=== PATIENT | male | born 1985 | race Caucasian/White ===

== ENCOUNTER 2020-08-21 10:35 | Emergency (ER) | payer MEDICAID ==
[~2020-08-21] VITALS: Ht 177.8 cm; Wt 100.0 kg
[2020-08-21] MEDS ORDERED: SODIUM CHLORIDE 0.9% 1,000 ML IV ONE (10:45)
[2020-08-21] MEDS ORDERED: LORAZEPAM 2MG/ML CPJ IV ONE ×2 (10:45→12:15)
[2020-08-21 11:00] LABS: BASOPHILS % 0.5 % (0.0-2.0); EOSINOPHILS % 0.1 % (0.0-5.0); HEMATOCRIT. 46.3 % (42.0-52.0); HEMOGLOBIN. 15.7 g/dL (14.0-18.0); LYMPHOCYTES % 18.4 % (20.0-50.0); MEAN CORPUSCULAR HEMOGLOBIN 28.3 pg (28.0-32.0); MEAN CORPUSCULAR VOLUME 83.5 fL (80.0-94.0); MEAN PLATELET VOLUME 8.6 fl (7.4-10.4); MONOCYTES % 7.6 % (2.0-8.0); NEUTROPHILS % 73.4 % (40.0-76.0); PLATELET 240 x1000/uL (130-400); RED BLOOD CELL COUNT 5.54 mill/uL (4.7-6.1); RED CELL DISTRIBUTION WIDTH 14.3 % (11.6-14.6)
[2020-08-21 11:07] LABS: CHLORIDE 105 mEq/L (98-107)
[2020-08-21] MEDS ORDERED: IOHEXOL-350 100 ML BOTTLE ONE (12:28)
[2020-08-21 12:45] VITALS: BP 126/87
[2020-08-21 13:07] LABS: *AMPHETAMINES SCREEN URINE PRESUMTIVE POSITIVE (NEGATIVE); *BARBITURATES SCREEN URINE NEGATIVE (NEGATIVE)
[2020-08-21 13:08] LABS: *BENZODIAZEPINES SCREEN URINE NEGATIVE (NEGATIVE); *COCAINE SCREEN URINE NEGATIVE (NEGATIVE); METHADONE URINE SCREEN NEGATIVE (NEGATIVE)
[2020-08-21 13:09] LABS: CANNABINOID URINE SCREEN NEGATIVE (NEGATIVE); OPIATES URINE SCREEN NEGATIVE (NEGATIVE); PHENCYCLIDINE URINE SCREEN NEGATIVE (NEGATIVE)
== END 2020-08-21 14:19 | disposition home or self-care (01) ==
LOC: ER 10:44
DX: F15.129 Other stimulant abuse with intoxication, unspecified (principal); R07.89 Other chest pain; I47.1 Supraventricular tachycardia
CPT/HCPCS: 36415; 71045; 71275; 80053; 80305; 83880; 84484; 85025; 93005; 96361; 96374; 96376; 99285; J2060; J7030; Q9967; Z7610